=== PATIENT | male | born 1960 | race Caucasian/White ===

== ENCOUNTER 2020-11-20 16:08 | Emergency (ER) | payer BC ==
[2020-11-20] MEDS ORDERED: ACETAMINOPHEN TAB 325 MG TAB PO STA (18:42)
--- NOTE | 2020-11-20 19:39 | ED ---
URI HPI - General Chief Complaint: Upper Respiratory Infection Stated Complaint: Covid+ Time Seen by Provider: 11/20/20 18:42 Source: patient Mode of arrival: wheelchair Limitations: no limitations - History of Present Illness Initial Comments: 60-year-old male presents to emergency Department with a chief complaint of cold. Patient reports tested positive one week ago and has been experiencing symptoms including a fever, nonproductive cough, nausea, generalized fatigue and weakness. Patient also reports exertional dyspnea but no significant chest pain. Patient is not vaccinated. He denies any vomiting or diarrhea. Reports taking [id number] antipyretics. Denies any loss a smell or taste - Related Data Allergies Allergy/AdvReac Type Severity Reaction Status Date / Time codeine AdvReac Nausea & Verified 11/20/20 18:26 Vomiting Review of Systems ROS Statement: Those systems with pertinent positive or pertinent negative responses have been documented in the HPI. ROS Other: All systems not noted in ROS Statement are negative. Past Medical History Past Medical History: Diabetes Mellitus, Hypertension History of Any Multi-Drug Resistant Organisms: None Reported Past Surgical History: Orthopedic Surgery Past Psychological History: No Psychological Hx Reported Smoking Status: Never smoker Past Alcohol Use History: None Reported Past Drug Use History: None Reported General Exam Limitations: no limitations General appearance: alert, in no apparent distress, obese Head exam: Present: atraumatic, normocephalic, normal inspection Eye exam: Present: normal appearance Pupils: Present: normal accommodation ENT exam: Present: normal exam, normal oropharynx, mucous membranes moist Neck exam: Present: normal inspection, full ROM. Absent: tenderness Respiratory exam: Present: normal lung sounds bilaterally. Absent: respiratory distress, wheezes, rales, rhonchi, stridor Cardiovascular Exam: Present: regular rate, normal rhythm, normal heart sounds. Absent: systolic murmur Extremities exam: Present: normal inspection, full ROM, normal capillary refill. Absent: tenderness, pedal edema, joint swelling Back exam: Present: normal inspection, full ROM. Absent: tenderness, CVA tenderness (R), CVA tenderness (L), muscle spasm Neurological exam: Present: alert, oriented X3 Psychiatric exam: Present: normal affect, normal mood Skin exam: Present: warm, dry, intact, normal color Course Vital Signs 11/20/20 18:20 Temperature 102.0 F H Pulse Rate 80 Respiratory 18 Rate Blood Pressure 165/107 O2 Sat by Pulse 97 Oximetry Medical Decision Making - Medical Decision Making 60-year-old male presents emergency Department with a chief complaint of Covid. On physical examination, lungs are clear to auscultation. Chest x-ray is unrema rkable. CBC CMP shows mild transaminitis. Cor is within normal limits. Negative troponin. Negative d-dimer. Patient will be given monoclonal antibody. His vital signs are within normal limits aside from an elevated temperature on arrival. He does not appear to be in respiratory distress. Pat ient was observed after the infusion. Will be discharged. Case discussed with physician. - Lab Data Result diagrams: 11/20/20 19:32 11/20/20 19:32 Lab Results 11/20/20 11/20/20 11/20/20 Range/Units 19:32 19:32 19:32 WBC 5.8 (3.8-10.6) k/uL RBC 5.34 (4.30-5.90) m/uL Hgb 16.0 (13.0-17.5) gm/dL Hct 44.9 (39.0-53.0) % MCV 84.0 (80.0-100.0) fL MCH 29.9 (25.0-35.0) pg MCHC 35.6 (31.0-37.0) g/dL RDW 13.4 (11.5-15.5) % Plt Count 151 (150-450) k/uL MPV 7.9 Neutrophils % 67 % Lymphocytes % 25 % Monocytes % 5 % Eosinophils % 1 % Basophils % 0 % Neutrophils # 3.9 (1.3-7.7) k/uL Lymphocytes # 1.4 (1.0-4.8) k/uL Monocytes # 0.3 (0-1.0) k/uL Eosinophils # 0.1 (0-0.7) k/uL Basophils # 0.0 (0-0.2) k/uL PT 11.3 (9.0-12.0) sec INR 1.1 (<1.2) APTT 25.8 (22.0-30.0) sec D-Dimer 0.23 (<0.60) mg/L FEU Sodium 139 (137-145) mmol/L Potassium 3.9 (3.5-5.1) mmol/L Chloride 103 (98-107) mmol/L Carbon Dioxide 25 (22-30) mmol/L Anion Gap 11 mmol/L BUN 11 (9-20) mg/dL Creatinine 0.76 (0.66-1.25) mg/dL Est GFR (CKD-EPI)AfAm >90 (>60 ml/min/1.73 sqM) Est GFR (CKD-EPI)NonAf >90 (>60 ml/min/1.73 sqM) Glucose 113 H (74-99) mg/dL Calcium 9.3 (8.4-10.2) mg/dL Total Bilirubin 0.5 (0.2-1.3) mg/dL AST 109 H (17-59) U/L ALT 146 H (4-49) U/L Alkaline Phosphatase 70 (38-126) U/L Troponin I (0.000-0.034) ng/mL Total Protein 7.1 (6.3-8.2) g/dL Albumin 4.4 (3.5-5.0) g/dL 11/20/20 Range/Units 19:32 WBC (3.8-10.6) k/uL RBC (4.30-5.90) m/uL Hgb (13.0-17.5) gm/dL Hct (39.0-53.0) % MCV (80.0-100.0) fL MCH (25.0-35.0) pg MCHC (31.0-37.0) g/dL RDW (11.5-15.5) % Plt Count (150-450) k/uL MPV Neutrophils % % Lymphocytes % % Monocytes % % Eosinophils % % Basophils % % Neutrophils # (1.3-7.7) k/uL Lymphocytes # (1.0-4.8) k/uL Monocytes # (0-1.0) k/uL Eosinophils # (0-0.7) k/uL Basophils # (0-0.2) k/uL PT (9.0-12.0) sec INR (<1.2) APTT (22.0-30.0) sec D-Dimer (<0.60) mg/L FEU Sodium (137-145) mmol/L Potassium (3.5-5.1) mmol/L Chloride (98-107) mmol/L Carbon Dioxide (22-30) mmol/L Anion Gap mmol/L BUN (9-20) mg/dL Creatinine (0.66-1.25) mg/dL Est GFR (CKD-EPI)AfAm (>60 ml/min/1.73 sqM) Est GFR (CKD-EPI)NonAf (>60 ml/min/1.73 sqM) Glucose (74-99) mg/dL Calcium (8.4-10.2) mg/dL Total Bilirubin (0.2-1.3) mg/dL AST (17-59) U/L ALT (4-49) U/L Alkaline Phosphatase (38-126) U/L Troponin I <0.012 (0.000-0.034) ng/mL Total Protein (6.3-8.2) g/dL Albumin (3.5-5.0) g/dL Disposition Clinical Impression: COVID-19 Disposition: HOME SELF-CARE Condition: Stable Instructions (If sedation given, give patient instructions): Coronavirus Disease 2019 (COVID-19) Additional Instructions: Please return to the Emergency Department if symptoms worsen or any other concerns. Is patient prescribed a controlled substance at d/c from ED?: No Referrals: Nonstaff,Physician [Primary Care Provider] - 1-2 days Time of Disposition: 21:08
[2020-11-20 19:42] LABS: Basophils % (A) 0 %; Eosinophils # (A) 0.1 k/uL (0-0.7); Eosinophils % (A) 1 %; HCT 44.9 % (39.0-53.0); Lymphocytes # (A) 1.4 k/uL (1.0-4.8); Lymphocytes % (A) 25 %; MCH 29.9 pg (25.0-35.0); MCHC 35.6 g/dL (31.0-37.0); Mean Platelet Volume 7.9; Monocytes # (A) 0.3 k/uL (0-1.0); Monocytes % (A) 5 %; Neutrophils # (A) 3.9 k/uL (1.3-7.7); Neutrophils % (A) 67 %; Platelet Count 151 k/uL (150-450); RBC 5.34 m/uL (4.30-5.90); RDW 13.4 % (11.5-15.5); WBC 5.8 k/uL (3.8-10.6)
--- NOTE | 2020-11-20 19:46 | XR ---
EXAMINATION: XR chest 1V portable DATE AND TIME: 11/20/2020 7:26 PM CLINICAL INDICATION: PHH; covid TECHNIQUE: AP upright portable COMPARISON: None FINDINGS: The hemidiaphragms are elevated, consistent with relatively low lung inflation at the moment of x-ray exposure. The visualized lungs are clear and well-expanded as can be seen. The pleural spaces are negative. The cardiac silhouette is not enlarged. The remainder of the mediastinal silhouette is unremarkable. The skeletal structures and soft tissues are negative for acute findings. IMPRESSION: No acute radiographic process.
[2020-11-20 19:54] LABS: ALT 146 U/L (4-49); AST 109 U/L (17-59); African American GFR (CKD) >90 (>60 ml/min/1.73 sqM); Albumin 4.4 g/dL (3.5-5.0); Alkaline Phosphatase 70 U/L (38-126); Anion Gap 11 mmol/L; Blood Urea Nitrogen 11 mg/dL (9-20); Calcium 9.3 mg/dL (8.4-10.2); Carbon Dioxide 25 mmol/L (22-30); Chloride 103 mmol/L (98-107); Glucose 113 mg/dL (74-99); Non-African American GFR(CKD) >90 (>60 ml/min/1.73 sqM); Potassium 3.9 mmol/L (3.5-5.1); Sodium 139 mmol/L (137-145); Total Bilirubin 0.5 mg/dL (0.2-1.3); Total Protein 7.1 g/dL (6.3-8.2)
[2020-11-20 20:37] LABS: INR 1.1 (<1.2); Partial Thromboplastin Time 25.8 sec (22.0-30.0); Prothrombin Time 11.3 sec (9.0-12.0)
[2020-11-20] MEDS ORDERED: IBUPROFEN 600 MG TAB PO STA (21:15)
[2020-11-20] MEDS ORDERED: SODIUM CHLORIDE 0.9% 50 ML IVPB ONE (21:15)
[2020-11-20 21:17] VITALS: BP 141/90; PULSE 68; RESP 20
[2020-11-20] MEDS ORDERED: CASIRIVIMAB (REGN10933) (EUA) 600 MG, IMDEVIMAB (REGN10987) (EUA) 600 MG in SODIUM CHLO... IVPB ONE (21:30)
[2020-11-20 22:29] VITALS: TEMP 98.6
== END 2020-11-20 23:14 | disposition home or self-care (01) ==
LOC: EC 16:08
DX: U07.1 COVID-19 (principal); E11.9 Type 2 diabetes mellitus without complications; I10 Essential (primary) hypertension; Z88.5 Allergy status to narcotic agent
CPT/HCPCS: 36415; 85379; 80053; 84484; 85025; 85610; 85730; 71045; 99285; 96365; Q0243

== ENCOUNTER 2022-09-13 19:19 | Emergency (ER) | payer OTHER, BC ==
[2022-09-13 19:25] VITALS: RESP 16; TEMP 98
--- NOTE | 2022-09-13 19:41 | ED ---
Fall HPI - General Chief Complaint: Fall Stated Complaint: Bilateral Leg Pain Time Seen by Provider: 09/13/22 19:22 Source: patient, RN notes reviewed Mode of arrival: EMS Limitations: no limitations - History of Present Illness Initial Comments: This is a 61-year-old male who presents to the emergency department for bilateral lower extremity pain. Patient states that he tripped going down stairs shortly before arrival and fell forward. He has since had extreme pain in both of his thighs. He has been unable to bear weight since. States that in March of this year he had almost complete rupture of both of his hamstrings. He has been following with orthopedics at [facility] and they opted to go with conservative management. He has been taking it very easy since as a result of this. He is concerned that he may have reinjured both of his hamstrings. The majority of his pain is in the right leg. Denies hitting his head and he is not taking any blood thinners. Denies any fevers, chills, sore throat, cough, dyspnea, chest pain, palpitations, abdominal pain, nausea, vomiting, diarrhea, back pain, or headaches. MD Complaint: fall - Related Data Home Medications Medication Instructions Recorded Confirmed Empagliflozin [Jardiance] 25 mg PO DAILY 09/13/22 09/13/22 Glucosam/Rivas-Msm1/C/Tera/Bosw 1 tab PO DAILY 09/13/22 09/13/22 [Glucosamine-Chondroitin Tablet] Multivitamins, Thera [Multivitamin 1 tab PO DAILY 09/13/22 09/13/22 (formulary)] [place]-3/Dha/Epa/Fish Oil [Fish Oil 1 cap PO DAILY 09/13/22 09/13/22 1,000 mg Softgel] Semaglutide [Ozempic] 1 mg SQ WE 09/13/22 09/13/22 amLODIPine BESYLATE/BENAZEPRIL 1 cap PO DAILY 09/13/22 09/13/22 [Lotrel 5-40 MG] Allergies Allergy/AdvReac Type Severity Reaction Status Date / Time codeine AdvReac Nausea & Verified 09/13/22 20:23 Vomiting Review of Systems ROS Statement: Those systems with pertinent positive or pertinent negative responses have been documented in the HPI. ROS Other: All systems not noted in ROS Statement are negative. Past Medical History Past Medical History: Diabetes Mellitus, Hypertension History of Any Multi-Drug Resistant Organisms: None Reported Past Surgical History: Orthopedic Surgery Past Psychological History: No Psychological Hx Reported Smoking Status: Never smoker Past Alcohol Use History: None Reported Past Drug Use History: None Reported General Exam Limitations: no limitations General appearance: alert, in distress Head exam: Present: atraumatic, normocephalic, normal inspection Respiratory exam: Present: normal lung sounds bilaterally. Absent: respiratory distress, wheezes, rales, rhonchi, stridor Cardiovascular Exam: Present: regular rate, normal rhythm, normal heart sounds. Absent: systolic murmur, diastolic murmur, rubs, gallop, clicks Extremities exam: Present: other (No obvious deformities to the bilateral lower extremities. Tenderness to palpation over the anterior aspects of the bilateral thighs. Very limited passive range of motion secondary to pain. 2+ DP and PT pulses.) Neurological exam: Present: alert, oriented X3, CN II-XII intact Psychiatric exam: Present: normal affect, normal mood Skin exam: Present: warm, dry, intact, normal color. Absent: rash Course Vital Signs 09/13/22 09/13/22 19:21 22:15 Temperature 98.0 F Pulse Rate 80 82 Respiratory 16 16 Rate Blood Pressure 150/91 144/82 O2 Sat by Pulse 96 98 Oximetry Medical Decision Making - Medical Decision Making This is a 61-year-old male who presents to the emergency department for bilateral leg pain. Was pt. sent in by a medical professional or institution? @ -No Did you speak to anyone other than the patient for history? @ -No Did you review nursing and triage notes? @ -I disagree with the aspect about his legs giving out on him. Patient states that he believes that he caught the heel of his shoe on something. Were old charts reviewed? @ -No Differential Diagnosis? @ -Differential Leg Pain: Leg fracture, leg sprain, DVT, PVD, arterial insufficiency, iliac artery aneurysm, cellulitis, compartment syndrome, tendinopathy, nerve entrapment, piriformis syndrome, osteoarthritis, rhabdomyolysis, myositis, cramping from an electrolyte imbalance, this is not meant to be an all inclusive list. EKG interpreted by me (3pts min.)? @ -Not obtained X-rays interpreted by me (1pt min.)? @ -Not obtained CT interpreted by me (1pt min.)? @ -Computed tomography scan of the bilateral femurs obtained. My interpretation identifies no acute fractures. U/S interpreted by me (1pt. min.)? @ -Not obtained What testing was considered but not performed? (CT, X-rays, U/S, labs)? Why? @ -None What meds were considered but not given? Why? @ -None Did you discuss the management of the patient with other professionals? @ -No Did you reconcile home meds? @ -No Was smoking cessation discussed for >3mins.? @ -No Was critical care preformed (if so, how long)? @ -No Were there social determinants of health that impacted care today? How? (Homelessness, low income, unemployed, alcoholism, drug addiction, transportation, low edu. Level, literacy, decrease access to med. care, intermediate, rehab)? @ -No Was there de-escalation of care discussed even if they declined? (Discuss DNR or withdrawal of care, Hospice)? @ -No What co-morbidities impacted this encounter? (DM, HTN, Smoking, COPD, CAD, Cancer, CVA, Hep., AIDS, mental health diagnosis, sleep apnea, morbid obesity)? @ -Morbid obesity Was patient admitted / discharged? @ -Discharged. Given that the patient had a previous hamstring injury, I felt more advanced imaging would be better for further evaluation. Advised that we cannot do an MRI in the emergency department, however we can do a computed tomography scan. Patient was agreeable to this. Additionally, the patient had very restricted range of motion secondary to the pain, and did not feel like he would be able to move his legs enough for the x-rays. However, he was declining any pain medication in the emergency department. Computed tomography scan of the bilateral femurs obtained. A partial tear of the right quadriceps tendon was difficult to exclude and there did appear to be a joint effusion and possible small bony fragmentation at the superior patellar pole. Findings reviewed with the patient. He was able to ambulate with assistance, and has a walker at home that he will be able to use. He continued to decline any pain medication and was instead given starter packs. I did recommend a knee immobilizer for the right leg, however he declined. Otherwise instructed him to follow up with orthopedics. Undiagnosed new problem with uncertain prognosis? @ -None Drug Therapy requiring intensive monitoring for toxicity (Heparin, Nitro, Insulin, Cardizem)? @ -None Were any procedures done? @ -None Diagnosis/symptom? @ -Fall, bilateral leg pain, right hamstring injury Acute, or Chronic, or Acute on Chronic? @ -Acute Uncomplicated (without systemic symptoms) or Complicated (systemic symptoms)? @ -Uncomplicated Side effects of treatment? @ -None Exacerbation, Progression, or Severe Exacerbation] @ -Not applicable Poses a threat to life or bodily function? @ -This is having an impact on his ability to ambulate for the mean time. Return precautions reviewed in depth, the patient is instructed to return to the emergency department with any new, worsening, or concerning symptoms. Patient verbalized understanding. This case was discussed in detail with the attending ED physician, Dr. Mccullough. Presentation, findings, and treatment plan discussed in detail as well. - Radiology Data Radiology results: report reviewed, image reviewed Disposition Clinical Impression: Fall, Bilateral leg pain, Right hamstring injury Disposition: HOME SELF-CARE Instructions (If sedation given, give patient instructions): Hamstring Injury (ED), Fall Prevention (ED) Additional Instructions: activity as tolerated. rest frequently, ICE 30mins 4-6 times per day, when possible elevate legs to reduce swelling. Alternate with ibuprofen and Tylenol. Follow up with orthopedics. Is patient prescribed a controlled substance at d/c from ED?: No Referrals: Nonstaff,Physician [Primary Care Provider] - 1-2 days
--- NOTE | 2022-09-13 20:54 | CT ---
EXAMINATION TYPE: CT femur RT wo con, CT femur LT wo con DATE OF EXAM: 09/13/2022 COMPARISON: None HISTORY: Fall down 3 stairs, pt c/o left knee and right thigh pain. CT DLP: Combined DLP of 1311.9 mGycm Automated exposure control for dose reduction was used. Unenhanced CT of the bilateral femora was per formed FINDINGS: Right femur: There is edema noted involving the quadriceps tendon with small joint effusion and bony fragmentation at the superior patellar pole. Partial quadriceps tendon tear is not excluded. Correlat e with MRI. The patellar tendon appears to be grossly intact. Femur is grossly intact without evidenc e for fracture. Mild degenerative change of the right hip joint space. Muscles. Grossly intact. Left femur: I do not See evidence for left femoral fracture. Mild degenerative joint space narrowing about the le ft hip. No soft tissue mass. Spurring superior patellar pole. Quadriceps and patellar tendons appear to be grossly unremarkable. IMPRESSION: 1. Partial tear of the quadriceps tendon is difficult to exclude. As noted there is joint effusion [place] fragmentation at the superior patellar pole. MRI is recommended. Correlate clinically. 2. No evidence for femoral fractures seen bilaterally.
[2022-09-13] MEDS ORDERED: traMADol 50 MG STARTER PACK 3 TAB BTL PO STA (21:28)
[2022-09-13] MEDS ORDERED: IBUPROFEN 600 MG STARTER PACK 4 TAB BTL PO STA (21:28)
[2022-09-13] MEDS ORDERED: CYCLOBENZAPRINE 10MG STARTER 3 TAB BTL PO STA (22:03)
[2022-09-13 23:02] VITALS: BP 144/82; PULSE 82
== END 2022-09-13 22:15 | disposition home or self-care (01) ==
LOC: EC 19:19
DX: S76.111A Strain of right quadriceps muscle, fascia and tendon, initial encounter (principal); M79.652 Pain in left thigh; E11.9 Type 2 diabetes mellitus without complications; I10 Essential (primary) hypertension; E66.01 Morbid (severe) obesity due to excess calories; Z68.35 Body mass index [BMI] 35.0-35.9, adult; Z79.84 Long term (current) use of oral hypoglycemic drugs; Z79.899 Other long term (current) drug therapy; Z88.5 Allergy status to narcotic agent; W10.9XXA Fall (on) (from) unspecified stairs and steps, initial encounter
CPT/HCPCS: 99284